=== PATIENT | female | born 2000 | race Hispanic/Latino ===

== ENCOUNTER 2022-03-22 19:24 | Emergency (ER) | payer MEDICAID, SELFPAY ==
[2022-03-22 20:01] LABS: #Basophils 0.1 10x3/uL (0.0-0.2); #Eosinphils 0.1 10x3/uL (0.0-0.5); #Monocytes 0.8 10x3/uL (0.0-1.1); #Neutrophils 4.7 10x3/uL (1.5-8.4); %Basophils 0.6 % (0.0-2.0); %Eosinophils 1.2 % (0.0-6.0); %Lymphocytes 42.1 % (18.0-47.0); %Monocytes 7.8 % (0.0-10.0); %Neutrophils 48.2 % (40.0-75.0); Hemoglobin 14.1 g/dL (12.0-15.5); Mean Corpuscular HGB CONC 35.6 g/dL (32.0-36.0); Mean Corpuscular Hemoglobin 31.8 pg (27.0-33.0); Mean Corpuscular Volume 89.2 fl (81.6-98.3); Mean Platelet Volume 10.1 fl (7.4-10.4); Platelet Count 306 10x3/uL (150-450); RBC Distribution Width 12.1 % (11.5-14.5); Red Blood Cell (RBC) Count 4.44 10x6/uL (3.90-5.03); White Blood Cell (WBC) Count 9.8 10x3/uL (3.5-10.5)
[2022-03-22] MEDS ORDERED: Ketorolac Tromethamine 30 MG/ML VIAL ONE (20:11)
[2022-03-22 20:13] LABS: Bilirubin Neg (Negative); Blood, Urine 150 (Negative); Clarity Clear (Clear); Glucose, Urine (Dipstick) Normal (Negative); Ketone, Urine Negative (Negative); Leukocyte Negative (Negative); Nitrite Negative (Negative); Protein, Urine (Dipstick) 15 mg/dl (Neg-Trace); Urobilinogen Normal mg/dL (Less than 2)
[2022-03-22 20:15] LABS: Pregnancy Test - Urine (BHCG) Negative (Negative); Pregu Control Background? CLEAR/WHITE (CLR/WHITE); Pregu Control Bar Appear? YES (CONTROL BAR)
[2022-03-22 20:23] LABS: Bacteria/HPF Rare-Few HPF (None Seen); RBC/HPF 0-3 HPF (0-3); Squamous Epithelial 0-3 HPF (0-3); WBC/HPF 0-3 HPF (0-3)
[2022-03-22] MEDS ORDERED: Morphine 4 MG/ML VIAL ONE (20:40)
[2022-03-22] MEDS ORDERED: Morphine 2 MG/ML VIAL ONE ×2 (20:42→21:54)
[2022-03-22 22:11] LABS: ALT (SGPT) 15 U/L (8-55); AST (SGOT) 21 U/L (5-34); Albumin 4.9 g/dL (3.5-5.0); Alkaline Phosphatase 76 U/L (40-100); Anion Gap 15 mmol/L (10-20); BUN (Urea Nitrogen) 8 mg/dL (7.0-18.7); Bilirubin, Total 1.1 mg/dL (0.2-1.2); Calc. Creatinine Clearance 0 mL/min (70-130); Calcium 9.7 mg/dL (7.8-10.44); Carbon Dioxide 26 mmol/L (22-29); Chloride 104 mmol/L (98-107); Globulin 2.9 g/dL (2.4-3.5); Glucose 92 mg/dL (70-105); Potassium 3.6 mmol/L (3.5-5.1); Protein, Total 7.8 g/dL (6.0-8.3); Sodium 141 mmol/L (136-145)
[2022-03-24 12:36] LABS: Chlamydia by PCR Not Detected (NotDetected); GC by PCR Not Detected (NotDetected)
== END 2022-03-22 22:34 | disposition home or self-care (01) ==
LOC: CSHERS 19:24
DX: R10.13 Epigastric pain (principal); R10.817 Generalized abdominal tenderness
CPT/HCPCS: 74176; 80053; 81003; 81015; 81025; 83690; 85025; 87480; 87491; 87510; 87591; 87660; 96361; 96374; 96375; 96376; J1885; J2270

== ENCOUNTER 2023-08-09 06:39 | Emergency (ER) | payer SELFPAY ==
[2023-08-09 07:43] LABS: Bilirubin Neg (Negative); Blood, Urine Negative (Negative); Glucose, Urine (Dipstick) Normal (Negative); Ketone, Urine Negative (Negative); Leukocyte 25 (Negative); Nitrite Negative (Negative); Protein, Urine (Dipstick) Negative (Neg-Trace); Specific Gravity, Urine 1.015 (1.005-1.030)
[2023-08-09 07:44] LABS: Clarity Clear (Clear)
[2023-08-09 07:45] LABS: Bacteria/HPF 1+ HPF (None Seen); CAUTI Indications for Culture Dysuria,urgency,freq; RBC/HPF None Seen HPF (0-3); WBC/HPF 0-3 HPF (0-3)
[2023-08-09 07:46] LABS: Pregnancy Test - Urine (BHCG) Negative (Negative); Pregu Control Background? CLEAR/WHITE (CLR/WHITE); Pregu Control Bar Appear? YES (CONTROL BAR); Specific Gravity 1.015 (1.002-1.036)
[2023-08-09 07:47] LABS: Urine Culture Reflex No No
[2023-08-09 07:51] LABS: BHCG - Serum Negative (NEGATIVE); Pregs Control Background? CLEAR/WHITE (CLR/WHITE); Pregs Control Bar Appear? YES (CONTROL BAR)
== END 2023-08-09 08:31 | disposition home or self-care (01) ==
LOC: CSHERS 06:39
DX: N39.0 Urinary tract infection, site not specified (principal); J45.909 Unspecified asthma, uncomplicated; F17.290 Nicotine dependence, other tobacco product, uncomplicated
CPT/HCPCS: 36415; 81001; 81025; 84703; 99284

== ENCOUNTER 2023-10-15 15:59 | Emergency (ER) | payer SELFPAY ==
[2023-10-15] MEDS ORDERED: Ibuprofen 200 MG TAB ONE (16:50)
[2023-10-15 16:51] LABS: Bilirubin Neg (Negative); Blood, Urine Negative (Negative); Clarity Clear (Clear); Glucose, Urine (Dipstick) Normal (Negative); Ketone, Urine Negative (Negative); Leukocyte Negative (Negative); Nitrite Negative (Negative); Protein, Urine (Dipstick) Negative (Neg-Trace); Specific Gravity, Urine 1.005 (1.005-1.030); Urobilinogen Normal mg/dL (Less than 2)
[2023-10-15 17:05] LABS: Bacteria/HPF 2+ HPF (None Seen); CAUTI Indications for Culture Dysuria,urgency,freq; RBC/HPF 0-3 HPF (0-3)
[2023-10-15 17:07] LABS: Pregnancy Test - Urine (BHCG) Negative (Negative); Pregu Control Background? CLEAR/WHITE (CLR/WHITE); Pregu Control Bar Appear? YES (CONTROL BAR); Specific Gravity 1.005 (1.002-1.036)
[2023-10-15 17:09] LABS: Transitional Epithelial 0-3 HPF (None Seen)
[2023-10-15 17:11] LABS: Urine Culture Reflex No No
[2023-10-16 16:35] LABS: Chlamydia by PCR, Vaginal Swab Not Detected (NotDetected); GC by PCR, Vaginal Swab Not Detected (NotDetected)
== END 2023-10-15 16:35 | disposition home or self-care (01) ==
LOC: CSHERS 15:59
DX: R10.30 Lower abdominal pain, unspecified (principal); F17.290 Nicotine dependence, other tobacco product, uncomplicated
CPT/HCPCS: 81001; 81025; 87480; 87491; 87510; 87591; 87660; 99284

== ENCOUNTER 2024-05-22 16:44 | Emergency (ER) | payer MEDICAID, OTHER ==
[~2024-05-22 16:44] MED LIST: Iopamidol 370 76% 100 ML VIAL ONE
[2024-05-22 17:21] LABS: #Basophils 0.06 10x3/uL (0.0-0.2); #Eosinphils 0.32 10x3/uL (0.0-0.5); #Monocytes 1.01 10x3/uL (0.0-1.1); #Neutrophils 7.24 10x3/uL (1.5-8.4); %Basophils 0.5 % (0.0-2.0); %Eosinophils 2.8 % (0.0-6.0); %Lymphocytes 22.2 % (18.0-47.0); %Monocytes 8.9 % (0.0-10.0); %Neutrophils 64.1 % (40.0-75.0); Hemoglobin 11.5 g/dL (12.0-15.5); Mean Corpuscular HGB CONC 34.8 g/dL (32.0-36.0); Mean Corpuscular Hemoglobin 31.9 pg (27.0-33.0); Mean Corpuscular Volume 91.4 fL (81.6-98.3); Mean Platelet Volume 10.8 fL (7.4-10.4); Platelet Count 302 10x3/uL (150-450); RBC Distribution Width 12.6 % (11.5-14.5); Red Blood Cell (RBC) Count 3.61 10x6/uL (3.90-5.03); White Blood Cell (WBC) Count 11.3 10x3/uL (3.5-10.5)
[2024-05-22 17:26] LABS: ALT (SGPT) 11 U/L (8-55); AST (SGOT) 18 U/L (5-34); Albumin 2.7 g/dL (3.5-5.0); Alkaline Phosphatase 174 U/L (40-110); Anion Gap 13 mmol/L (10-20); BUN (Urea Nitrogen) 8 mg/dL (7.0-18.7); Bilirubin, Total 0.3 mg/dL (0.2-1.2); Calc. Creatinine Clearance 0 mL/min (70-130); Calcium 8.7 mg/dL (7.8-10.44); Carbon Dioxide 21 mmol/L (22-29); Chloride 105 mmol/L (98-107); Estimated GFR 128; Globulin 3.4 g/dL (2.4-3.5); Glucose 100 mg/dL (70-105); Lipase 30 U/L (8-78); Magnesium 1.8 mg/dL (1.6-2.6); Potassium 3.6 mmol/L (3.5-5.1); Protein, Total 6.1 g/dL (6.0-8.3); Sodium 135 mmol/L (136-145)
[2024-05-22 17:33] LABS: Troponin I Less than 0.010 ng/mL (< 0.028)
== END 2024-05-22 19:27 | disposition home or self-care (01) ==
LOC: CSHERS 16:44
DX: R06.02 Shortness of breath (principal); Z87.891 Personal history of nicotine dependence
CPT/HCPCS: 71275; 80053; 83690; 83735; 84484; 85025; 85379; 93005; Q9967